=== PATIENT | male | born 1980 | race Asian ===

== ENCOUNTER 2021-02-07 07:21 | Emergency (ER) | payer MEDICAID ==
[~2021-02-07] VITALS: Ht 167.6 cm; Wt 94.8 kg
[2021-02-07 07:26] VITALS: BP 183/121
--- NOTE | 2021-02-07 07:39 | NUR ---
Pt c/o generalized abdominal pain since last night. Last BM 02/06/21, small amount of diarrhea. Abdominal pain currently /10. Denies N/V. Pt A&O x4. GCS 15.
--- NOTE | 2021-02-07 07:49 | NUR ---
MD Healy evaluating pt at bedside
[2021-02-07] MEDS ORDERED: KETOROLAC 30 MG/ML VIAL IM ONE (07:55)
[2021-02-07] MEDS ORDERED: DICYCLOMINE HCL LIQUID 20 MG, ALUMINUM HYD/MAG/SIMETHICONE 30 ML, LIDOCAINE VISCOUS 2% ... PO ONE ×3 (07:55)
[2021-02-07] MEDS ORDERED: KETOROLAC 30 MG/ML VIAL ONE (07:56)
[2021-02-07] MEDS ORDERED: ALUMINUM HYD/MAG/SIMETHICONE 30 ML UDC ONE (07:58)
[2021-02-07] MEDS ORDERED: DICYCLOMINE HCL LIQUID 10 MG/5 ML UDC ONE (07:59)
--- NOTE | 2021-02-07 08:03 | NUR ---
Pt taken to CT via wheelchair
--- NOTE | 2021-02-07 08:20 | NUR ---
BLOOD WORK COLLECTED AND WALKED OVER TO LAB
[2021-02-07 08:25] LABS: BASOPHILS # (AUTO) 0.1 K/uL (0.00-0.22); BASOPHILS % (AUTO) 0.6 % (0.0-2.0); EOSINOPHILS # (AUTO) 0.2 K/uL (0-0.4); EOSINOPHILS % (AUTO) 1.9 % (0.0-4.0); HEMATOCRIT 45.7 % (36-52); LYMPHOCYTES # (AUTO) 1.9 K/uL (2.0-11.5); LYMPHOCYTES % (AUTO) 21.3 % (20.5-51.1); MEAN CORPUSCULAR HEMOGLOBIN 31 pg (27-31); MEAN CORPUSCULAR HGB CONC 35 g/dL (33-37); MEAN CORPUSCULAR VOLUME 88.9 fL (80-94); MONOCYTES # (AUTO) 0.4 K/uL (0.8-1.0); MONOCYTES % (AUTO) 4.8 % (1.7-9.3); NEUTROPHILS # (AUTO) 6.5 K/uL (1.8-7.7); NEUTROPHILS % (AUTO) 71.4 % (42.2-75.2); PLATELET COUNT (AUTO) 312 K/uL (140-450); RED BLOOD CELL COUNT(AUTO) 5.14 MIL/uL (4.20-6.10); RED CELL DISTRIBUTION WIDTH 13.1 % (11.6-13.7); WHITE BLOOD COUNT (AUTO) 9.1 K/uL (4.8-10.8)
[2021-02-07 08:30] LABS: BILIRUBIN,URINE NEGATIVE (NEGATIVE); BLOOD, URINE 2+ (NEGATIVE); COLOR,URINE YELLOW (YELLOW); LEUKOCYTE ESTERASE ,URINE 1+ (NEGATIVE); NITRITE, URINE NEGATIVE (NEGATIVE); UGLUCOSE NEGATIVE (NEGATIVE)
[2021-02-07 08:37] LABS: APPEARANCE,URINE HAZY (CLEAR)
[2021-02-07 08:45] LABS: ALBUMIN 3.6 g/dL (3.4-5.0); ANION GAP 16.5 (8-16); CARBON DIOXIDE 24.6 mmol/L (21-32); CREATININE 1.3 mg/dL (0.6-1.3); POTASSIUM 3.1 mmol/L (3.5-5.1); TOTAL BILIRUBIN 0.7 mg/dL (0.0-1.0)
--- NOTE | 2021-02-07 09:36 | NUR ---
Pt requesting water. Pt reports he is feeling better. made aware.
[2021-02-07] MEDS ORDERED: POTASSIUM CHLORIDE 10 MEQ TABER PO ONE (10:10)
[2021-02-07] MEDS ORDERED: ACET-10509 PO (10:17)
[2021-02-07] MEDS ORDERED: CIPR500T4 PO (10:17)
[2021-02-07] MEDS ORDERED: BEN10 PO (10:17)
[2021-02-07 10:36] VITALS: BP 150/113
--- NOTE | 2021-02-07 10:36 | NUR ---
Patient discharged with v/s stable. Written and verbal after care instructions given and explained. Patient alert, oriented and verbalized understanding of instructions. Ambulatory with steady gait. All questions addressed prior to discharge. ID band removed. Patient advised to follow up with PMD. Rx of Acetaminophen, Bentyl, and Cipro was given. Patient educated on indication of medication including possible reaction and side effects. Opportunity to ask questions provided and answered.
== END 2021-02-07 10:36 | disposition home or self-care (01) ==
LOC: MED 07:21
DX: N39.0 Urinary tract infection, site not specified (principal); E87.6 Hypokalemia; Z87.442 Personal history of urinary calculi
CPT/HCPCS: 36415; 74176; 80053; 81001; 83690; 85025; 87086; 96372; 99284; J1885